=== PATIENT | male | born 1955 | race Caucasian/White ===

== ENCOUNTER 2018-02-04 11:01 | Observation (INO) | payer OTHER ==
[2018-01-23 13:52] VITALS: BMI 28.0
--- NOTE | 2018-01-23 14:39 | PAT Medication Instructions ---
Service Date Jan 23, 2018. Current Home Medication List Aspirin (Aspirin Ec), 81 MG PO QAM Atorvastatin (Lipitor), 10 MG PO QPM B-Complex Vitamins (B Complex), 1 CAP PO 3XWK Cholecalciferol (Vitamin D3), 1 TAB PO 3XWK Cinnamon (Cinnamon Extract), 1,000 MG PO 3XWK Coenzyme Q10 (Ubidecarenone) (Co Q-10), 100 MG PO QAM Flaxseed (Linseed) (Flax Seed Oil), Unknown Dose PO 3XWK Magnesium Oxide (Magnesium), 250 MG PO 3XWK Metoprolol Tartrate (Lopressor), 25 MG PO BID Milk Thistle (Silybum Marianum (Milk Thistle), 1 CAP PO 2XWK Multiple Vitamins W/ Minerals (Centrum Silver 50+Men), 1 TAB PO 2XWK Nutritional Supplements ([place] Oil), 1 CAP PO 3XWK Olmesartan/Hctz (Benicar Hct 40/12.5), 1 TAB PO QAM Potassium Gluconate (Potassium Gluconate), Unknown Dose PO 3XWK Tamsulosin HCl (Tamsulosin HCl), 1 CAP PO HS Tocopheryl Acet,Dl-Alpha (Vitamin E), PO 3XWK [C With Dianelys Hips ], Unknown Dose PO 3XWK Medication Instructions For Your Scheduled Surgery -Continue as directed (taking M/W/F) B-Complex Vitamins (B Complex), 1 CAP PO 3XWK Cholecalciferol (Vitamin D3), 1 TAB PO 3XWK Magnesium Oxide (Magnesium), 250 MG PO 3XWK Potassium Gluconate (Potassium Gluconate), Unknown Dose PO 3XWK - Hold the following medications 2 weeks prior to surgery: Cinnamon (Cinnamon Extract), 1,000 MG PO 3XWK Coenzyme Q10 (Ubidecarenone) (Co Q-10), 100 MG PO QAM Flaxseed (Linseed) (Flax Seed Oil), Unknown Dose PO 3XWK Milk Thistle (Silybum Marianum (Milk Thistle), 1 CAP PO 2XWK Nutritional Supplements ([place] Oil), 1 CAP PO 3XWK Tocopheryl Acet,Dl-Alpha (Vitamin E), PO 3XWK [C With Dianelys Hips ], Unknown Dose PO 3XWK - Hold the following medications 10 days prior to surgery per surgeon (STEVE with cardiology): Aspirin (Aspirin Ec), 81 MG PO QAM - Hold the following medications the morning of surgery: Multiple Vitamins W/ Minerals (Centrum Silver 50+Men), 1 TAB PO 2XWK Olmesartan/Hctz (Benicar Hct 40/12.5), 1 TAB PO QAM - Take the following medications the morning of surgery with a sip of water: Metoprolol Tartrate (Lopressor), 25 MG PO BID - Take the following medications as scheduled the night before surgery: Atorvastatin (Lipitor), 10 MG PO QPM Metoprolol Tartrate (Lopressor), 25 MG PO BID Tamsulosin HCl (Tamsulosin HCl), 1 CAP PO HS If you have any questions please call us at [phone] or [phone] or [phone]
--- NOTE | 2018-01-23 15:39 | DIAGNOSTIC IMAGING REPORT ---
CHEST 2 VIEWS ROUTINE HISTORY: Preop. COMPARISON: None. FINDINGS: Bibasilar linear densities suggestive of subsegmental atelectasis. The lungs are otherwise clear. Mild elevation the left hemidiaphragm. The heart is normal in size. No pleural effusions. No pneumothorax. IMPRESSION: Elevated left hemidiaphragm and bibasilar subsegmental atelectasis. Otherwise, no acute process within the chest. Electronically signed by: Jus Maguire M.D. 01/23/2018 3:37 PM Dictated Date/Time: 01/23/2018 3:36 PM
[2018-02-04] VITALS (8 sets, daily range): BP systolic 107–125; BP diastolic 49–87; PULSE 59–85; TEMP 36.5–36.7; O2SAT 91–95; Ht 172.7 cm; Wt 85.0 kg
[~2018-02-04] VITALS: Ht 172.7 cm; Wt 85.0 kg
[~2018-02-04 11:01] MED LIST: ASPI81TA28 PO; ATOR10TA82 PO; ATROPINE SULFATE 0.1 MG/ML 5ML SYR IV PRN; B-CO1CAP3 PO; CHOL1000 PO; CINN500C13 PO; CIPROFLOXACIN / D5W 400 MG IV SCH; COEN75CA PO; EpHEDrine SULFATE INJ 50 MG/ML AMP IV PRN; FENTANYL CITRATE INJ 50 MCG/1 ML 2 ML VIAL IV PRN; FLAX10007 PO; FLM4 PO; HYDROmorphone INJ 1 MG/ML SYR IV PRN; LACTATED RINGER'S 1000ML 1,000 ML IV SCH; LPR25 PO; MAGN1CAP4 PO; MILK250C PO; MULT-1093 PO; NUTR1000 PO; OLME40TA30 PO; ONDANSETRON INJ 2 MG/ML 2 ML VIAL IV PRN; POTA1TAB PO; VTME100 PO; [UNRECOGNIZED DRUG - OTHER] PO
[2018-02-04] MEDS ORDERED: MIDAZOLAM HCL 1 MG/ML 2ML VIAL ONE (11:14)
[2018-02-04] MEDS ORDERED: FENTANYL CITRATE INJ 50 MCG/1 ML 2 ML VIAL ONE (11:14)
[2018-02-04] MEDS ORDERED: ONDANSETRON INJ 2 MG/ML 2 ML VIAL ONE (11:18)
[2018-02-04] MEDS ORDERED: PHENYLEPHRINE 100MCG/ML 5ML SYR ONE (11:18)
[2018-02-04] MEDS ORDERED: DEXAMETHASONE SOD INJ 4 MG/ML VIAL ONE ×2 (11:18→12:44)
[2018-02-04] MEDS ORDERED: LIDOCAINE HCL 2% 2 ML VIAL (20MG/ML) ONE (11:18)
[2018-02-04] MEDS ORDERED: EpHEDrine SULFATE 50MG/5ML SYR ONE (11:18)
[2018-02-04] MEDS ORDERED: PROPOFOL IV EMULSION 10 MG/ML 20 ML VIAL IV ONE (11:18)
--- NOTE | 2018-02-04 11:45 | History & Physical Bridge Note ---
H&P Re-Evaluation Bridge Note: I have examined the patient, reviewed the History & Physical and in the interval since the performance of the History & Physical I have noted the following changes of clinical significance: No changes noted
--- NOTE | 2018-02-04 13:11 | [facility] Post Operative Brief Note ---
Immediate Operative Summary Operative Date Feb 04, 2018. Pre-Operative Diagnosis Benign prostatic hyperplastia with urinary obstruction Post-Operative Diagnosis Same as preop Procedure(s) Performed Transurethral Resection of Prostate, cystoscopy Surgeon Dr. Segundo [employer] Technician Surgeon(s) none Estimated Blood Loss 5 cc Findings Consistent with Post-Op Diagnosis Specimens none, as per surgeon Drains [place] Anesthesia Type General Complication(s) none Disposition Accompanied Pt To Recover: yes Disposition: Recovery Room / PACU
[2018-02-04] MEDS ORDERED: ACETAMINOPHEN/CODEINE 300/30MG TAB PO PRN ×2 (13:30)
[2018-02-04] MEDS ORDERED: ONDANSETRON INJ 2 MG/ML 2 ML VIAL IV PRN (13:30)
[2018-02-04] MEDS ORDERED: ACETAMINOPHEN 325 MG TAB PO PRN (13:30)
--- NOTE | 2018-02-04 13:33 | [facility] Operative Report ---
Operative Report Operative Date Feb 04, 2018. Pre-Operative Diagnosis Benign prostatic hyperplastia with urinary obstruction Post-Operative Diagnosis Same as preop Procedure(s) Performed Transurethral Resection of Prostate, cystoscopy Surgeon Dr. Segundo Fly Raiser Lockstitch Surgeon(s) none Estimated Blood Loss 5 cc Findings Notable intravesical median lobe and high bladder neck Specimens none, as per surgeon Drains [place] Anesthesia Type General Complication(s) none Disposition yes Recovery Room / PACU Indications Voiding dysfunction Description of Procedure The patient was identified in the preoperative holding area, appropriate informed consents were reviewed and completed and the patient was transported to the operating suite. Upon arrival he received appropriate preoperative antibiotics in the form of ciprofloxacin. Adequate general anesthesia was achieved and he was placed in dorsolithotomy position where he was sterilely prepped and draped in standard fashion. Extreme caution was used with his neck secondary to his ankylosing spondylitis. I began the case by passing a 27 [place] resectoscope with visual obturator and 30 lens. Inspection revealed a healthy appearing urethra without evidence of stricture disease. Inspection of the prostate revealed moderate lateral lobe hypertrophy, however he has a very high bladder neck with an intravesical median lobe. The bladder was inspected and found to be without tumor or other abnormality. Ureteral orifices were in orthotopic position and located far enough from the intravesical median lobe as to not be an issue. I subsequently exchanged the visual obturator for resecting element and a button electrode. I began my resection by incising the bladder neck at 5 and 7: 00 in the line directed from the ureteral orifice to the verumontanum. This dropped the bladder neck significantly and after resecting the tissue between my 2 incisions, the bladder neck was flattened appropriately. I proceeded to resect the left lateral lobe beginning at the base and proceeding towards the apex followed by resection of the right lateral lobe in the same fashion. There is some sparing of apical tissues to preserve continence. There was excellent hemostasis at the end of the resection, and with the scope positioned at the verumontanum, it was very easy to see directly into the bladder. I left the bladder full and withdrew the scope before placing a 22 [place] catheter. The patient was subsequently extubated and taken to the PACU in stable condition. I attest to the content of the Intraoperative Record and any orders documented therein. Any exceptions are noted below.
[2018-02-04] MEDS ORDERED: IV FLUIDS COMPLETED PRN (14:00)
--- NOTE | 2018-02-04 14:09 | Anesthesiology Progress Note ---
Anesthesia Post Op Note Date & Time Feb 04, 2018 at 14:09 Vital Signs Pain Intensity: 0 Vital Signs Past 12 Hours Date Time Temp Pulse Resp B/P (MAP) Pulse Ox O2 Delivery O2 Flow Rate FiO2 02/04/18 13:45 75 16 122/80 97 Room Air 02/04/18 13:35 81 16 119/79 99 Oxymask 7 02/04/18 13:25 76 14 117/69 99 Oxymask 7 02/04/18 13:15 36.5 75 14 116/74 97 Oxymask 7 02/04/18 11:29 36.5 59 18 114/87 (96) 95 Room Air Notes Mental Status: alert / awake / arousable, participated in evaluation Pt Amnestic to Procedure: Yes Nausea / Vomiting: adequately controlled Pain: adequately controlled Airway Patency, RR, SpO2: stable & adequate BP & HR: stable & adequate Hydration State: stable & adequate Anesthetic Complications: no major complications apparent
[2018-02-04] MEDS: LACTATED RINGER'S 1000ML 1,000 ML IV SCH ×2 (20:09→20:11)
[2018-02-04] MEDS: METOPROLOL TARTRATE 25 MG TAB PO SCH (20:14)
[2018-02-04] MEDS ORDERED: NURSING VERBAL MED ORDER ONE (20:45)
[2018-02-04] MEDS ORDERED: ATORVASTATIN 10 MG TAB PO SCH (21:00)
[2018-02-05 03:55] VITALS: BP 101/61; PULSE 72; TEMP 36.6; O2SAT 93
[2018-02-05] MEDS: LACTATED RINGER'S 1000ML 1,000 ML IV SCH (04:10)
[2018-02-05 07:01] LABS: HEMATOCRIT 39.9 % (42-52); HEMOGLOBIN 13.7 g/dL (14.0-18.0); IG# 0.04 K/uL (0.00-0.02); LYMPH % 6.2 %; LYMPH ABS # 0.85 K/uL (1.2-3.4); MEAN CELL VOLUME 89.1 fL (80-100); MEAN CORPUSCULAR HEMOGLOBIN 30.6 pg (25-34); MEAN CORPUSCULAR HGB CONC 34.3 g/dl (32-36); MEAN PLATELET VOLUME 8.8 fL (7.4-10.4); MONO % 6.6 %; MONO ABS # 0.91 K/uL (0.11-0.59); NEUT % 86.9 %; NEUT ABS # 11.99 K/uL (1.4-6.5); PLATELET COUNT 272 K/uL (130-400); RED CELL DISTRIBUTION WIDTH CV 13.8 % (11.5-14.5); RED CELL DISTRIBUTION WIDTH SD 45.4 fL (36.4-46.3); WHITE BLOOD COUNT 13.79 K/uL (4.8-10.8)
[2018-02-05 07:37] LABS: CALCIUM 8.6 mg/dl (8.5-10.1); CREATININE 0.99 mg/dl (0.60-1.40); POTASSIUM 4.4 mmol/L (3.5-5.1)
--- NOTE | 2018-02-05 08:09 | Anesthesiology Progress Note ---
Anesthesia Post Op Note Date & Time Feb 05, 2018 at 08:09 Vital Signs Pain Intensity: 0.0 Vital Signs Past 12 Hours Date Time Temp Pulse Resp B/P (MAP) Pulse Ox O2 Delivery O2 Flow Rate FiO2 02/05/18 03:55 36.6 72 16 101/61 (74) 93 Room Air 02/05/18 00:00 Room Air 02/04/18 23:05 36.6 72 16 108/49 (68) 94 Room Air 02/04/18 21:44 36.5 83 16 113/65 (81) 92 Room Air Notes Mental Status: alert / awake / arousable, participated in evaluation Pt Amnestic to Procedure: Yes Nausea / Vomiting: adequately controlled Pain: adequately controlled Airway Patency, RR, SpO2: stable & adequate BP & HR: stable & adequate Hydration State: stable & adequate Anesthetic Complications: no major complications apparent
[2018-02-05 08:11] VITALS: BP 115/70; PULSE 77; TEMP 36.7; O2SAT 93
--- NOTE | 2018-02-05 08:27 | Progress Note ---
Progress Note Date of Service Feb 05, 2018. Progress Note No issues overnight. 02/05/18 06:41 Red Blood Count 4.48, Mean Corpuscular Volume 89.1, Mean Corpuscular Hemoglobin 30.6, Mean Corpuscular Hemoglobin Concent 34.3, Mean Platelet Volume 8.8, Neutrophils (%) (Auto) 86.9, Lymphocytes (%) (Auto) 6.2, Monocytes (%) (Auto) 6.6, Eosinophils (%) (Auto) 0.0, Basophils (%) (Auto) 0.0, Neutrophils # (Auto) 11.99, Lymphocytes # (Auto) 0.85, Monocytes # (Auto) 0.91, Eosinophils # (Auto) 0.00, Basophils # (Auto) 0.00 02/05/18 06:41 Test 02/05/18 06:41 White Blood Count 13.79 K/uL (4.8-10.8) Red Blood Count 4.48 M/uL (4.7-6.1) Hemoglobin 13.7 g/dL (14.0-18.0) Hematocrit 39.9 % (42-52) Mean Corpuscular Volume 89.1 fL (80-100) Mean Corpuscular Hemoglobin 30.6 pg (25-34) Mean Corpuscular Hemoglobin Concent 34.3 g/dl (32-36) Platelet Count 272 K/uL (130-400) Mean Platelet Volume 8.8 fL (7.4-10.4) Neutrophils (%) (Auto) 86.9 % Lymphocytes (%) (Auto) 6.2 % Monocytes (%) (Auto) 6.6 % Eosinophils (%) (Auto) 0.0 % Basophils (%) (Auto) 0.0 % Neutrophils # (Auto) 11.99 K/uL (1.4-6.5) Lymphocytes # (Auto) 0.85 K/uL (1.2-3.4) Monocytes # (Auto) 0.91 K/uL (0.11-0.59) Eosinophils # (Auto) 0.00 K/uL (0-0.5) Basophils # (Auto) 0.00 K/uL (0-0.2) RDW Standard Deviation 45.4 fL (36.4-46.3) RDW Coefficient of Variation 13.8 % (11.5-14.5) Immature Granulocyte % (Auto) 0.3 % Immature Granulocyte # (Auto) 0.04 K/uL (0.00-0.02) Anion Gap 6.0 mmol/L (3-11) Est Creatinine Clear Calc Drug Dose 80.0 ml/min Estimated GFR () 92.9 Estimated GFR (Non- 80.2 BUN/Creatinine Ratio 14.0 (10-20) Calcium Level 8.6 mg/dl (8.5-10.1) Vital Signs Past 12 Hours Date Time Temp Pulse Resp B/P (MAP) Pulse Ox O2 Delivery O2 Flow Rate FiO2 02/05/18 08:11 36.7 77 16 115/70 (85) 93 Room Air 02/05/18 03:55 36.6 72 16 101/61 (74) 93 Room Air 02/05/18 00:00 Room Air 02/04/18 23:05 36.6 72 16 108/49 (68) 94 Room Air 02/04/18 21:44 36.5 83 16 113/65 (81) 92 Room Air NAD AAOx3 urine relatively clear A/P: POD #1 s/p TURP - voiding trial - d/c home
[2018-02-05] MEDS ORDERED: ACET-749 PO (08:47)
[2018-02-05] MEDS ORDERED: DOCU-94 PO (08:47)
[2018-02-05] MEDS ORDERED: OLMESARTAN MEDOXOMIL 40 MG TAB PO SCH (09:00)
[2018-02-05] MEDS ORDERED: HYDROCHLOROTHIAZIDE 25 MG TAB PO SCH (09:00)
[2018-02-05] MEDS: METOPROLOL TARTRATE 25 MG TAB PO SCH (09:21)
--- NOTE | 2018-02-05 09:51 | Discharge Instructions ---
Discharge Instructions Date of Service Feb 05, 2018. Admission Reason for Admission: Benign Prostatic Hyperplasia With Urinary Obstruct Discharge Discharge Diagnosis / Problem: Benign Prostatic Hyperplasia with Urinary Obstruction Discharge Goals Goal(s): Decrease discomfort, Improve disease control, Therapeutic intervention Activity Recommendations Activity Limitations: as noted below Lifting Limitations: no more than 25 pounds (x 2 weeks ) Exercise/Sports Limitations: rest today, until after follow-up appointment ( light activity x 2 weeks; no shoveling snow or yard work ) May Resume Sexual Activity: after follow-up appointment Shower/Bathe: no limitations Driving or Machine Use: resume 3 days after discharge (Do not drive while taking narcotics. ) . Instructions / Follow-Up Instructions / Follow-Up 1. Resume taking Aspirin in 3 days. 2. Follow-up with Dr. Segundo as scheduled. Please call the office at if you need to reschedule for any reason. Current Hospital Diet Patient's current hospital diet: Regular Diet Discharge Diet Recommended Diet: Regular Diet Procedures Procedures Performed: Transurethral Resection of Prostate, cystoscopy Pending Studies Studies pending at discharge: no Medical Emergencies . Who to Call and When: Medical Emergencies: If at any time you feel your situation is an emergency, please call 911 immediately. . Non-Emergent Contact Non-Emergency issues call your: Urologist Call Non-Emergent contact if: temperature is above 101.5, your pain is not controlled, your pain is worsening, your pain is unusual for you, your pain is concerning you, you have any medication questions . . "Provider Documentation" section prepared by Elena Mann. . [place] Drug Monitoring Program Search Results: patient reviewed within database, no issues identified
[2018-02-05 10:42] VITALS: O2SAT 93
[2018-02-05 12:05] VITALS: BP 115/70; PULSE 77; TEMP 36.7; O2SAT 93
--- NOTE | 2018-02-06 08:43 | Discharge Summary ---
Discharge Summary Date of Service Feb 06, 2018. Admission Date/Reason Feb 04, 2018 at 13:20 Benign Prostatic Hyperplasia With Urinary Obstruct. Discharge Date/Disposition Feb 05, 2018 Home Diagnosis Principal Diagnosis: BPH Procedure(s) Performed Cystoscopy, TURP Medication Reconciliation New Medications: Acetaminophen/Codeine (Tylenol W/Codeine #3) 300 Mg/30 Mg Tab 1 TAB PO Q4 PRN for Pain, #10 TAB Docusate Sodium (Colace) 100 Mg Cap 1 CAP PO BID PRN for Constipation for 15 Days, #30 CAP Continued Medications: Atorvastatin (Lipitor) 10 Mg Tab 10 MG PO QPM, TAB B-Complex Vitamins (B Complex) 1 Cap Cap 1 CAP PO 3XWK TAKES MON, WED AND FRI IN AM Cholecalciferol (Vitamin D3) 1,000 Unit Tab 1 TAB PO 3XWK for 90 Days, TAB 3 Refills TAKES MON, WED, FRI - IN AM Cinnamon (Cinnamon Extract) 500 Mg Cap 1000 MG PO 3XWK TAKES MON, WED, FRI IN AM Coenzyme Q10 (Ubidecarenone) (Co Q-10) 75 Mg Cap 100 MG PO QAM, CAP Flaxseed (Linseed) (Flax Seed Oil) Unknown Strength Cap Unknown Dose PO 3XWK TAKES MON, WED, FRI IN AM Magnesium Oxide (Magnesium) 500 Mg Cap 250 MG PO 3XWK MON, WED FRI IN AM Metoprolol Tartrate (Lopressor) 25 Mg Tab 25 MG PO BID, TAB Milk Thistle (Silybum Marianum (Milk Thistle) 250 Mg Cap 1 CAP PO 2XWK TAKES TUES, THUR IN AM Multiple Vitamins W/ Minerals (Centrum Silver 50+Men) 1 Tab Tab 1 TAB PO 2XWK TAKES TUES, THUR IN AM Nutritional Supplements ([place] Oil) 1 Cap Cap 1 CAP PO 3XWK TAKES MON, WED, FRI IN AM Olmesartan/Hctz (Benicar Hct 40/12.5) Tab 1 TAB PO QAM, TAB PT RECEIVED REFILL - BENICAR OLMESARTAN IS NAME ON THE BOTTLE - REPORTS DOSE OF 40 MG Potassium Gluconate (Potassium Gluconate) Unknown Strength Tab Unknown Dose PO 3XWK TAKES MON, WED, FRI IN AM Tocopheryl Acet,Dl-Alpha (Vitamin E) 100 Interunit Cap PO 3XWK PT MED LIST READS 400 IU DOSE - TAKES MON, WED AND FRI IN AM [C With Dianelys Hips ] () Unknown Strength Unknown Dose PO 3XWK TAKES SAT, SAT, FRI IN AM Discontinued Medications: Aspirin (Aspirin Ec) 81 Mg Tab 81 MG PO QAM Tamsulosin HCl (Tamsulosin HCl) 0.4 Mg Cap 1 CAP PO HS Admission Physical Exam As per Admitting History & Physical. Hospital Course Patient was admitted for cystoscopy and TURP. In summary, he tolerated the procedure extremely well and was transferred to the floor in stable condition with a [place] catheter in position. He progressed well overnight, and subsequently passed a voiding trial in the morning of postoperative day #1. He was then discharged home in stable condition. Discharge Instructions Please refer to the electronic Patient Visit Report (Discharge Instructions) for additional information.
== END 2018-02-05 12:32 | disposition home or self-care (01) ==
LOC: C.ACU 11:01 → C.MSN 13:20 → ENRESERV 13:40
PROVIDERS: ADMIT Urology; ATTEND Urology
DX: N40.1 Benign prostatic hyperplasia with lower urinary tract symptoms (principal); N13.8 Other obstructive and reflux uropathy; M45.9 Ankylosing spondylitis of unspecified sites in spine; I10 Essential (primary) hypertension; L82.0 Inflamed seborrheic keratosis; Z88.0 Allergy status to penicillin; Z86.73 Personal history of transient ischemic attack (TIA), and cerebral infarction without residual deficits; Z85.828 Personal history of other malignant neoplasm of skin; Z79.82 Long term (current) use of aspirin; Z96.659 Presence of unspecified artificial knee joint; Z80.1 Family history of malignant neoplasm of trachea, bronchus and lung